=== PATIENT | male | born 1995 | race Caucasian/White ===

== ENCOUNTER 2016-12-02 22:35 | Emergency (ER) | payer BC ==
[~2016-12-02] VITALS: Ht 190.5 cm; Wt 86.9 kg
[2016-12-02 22:48] VITALS: TEMP 36.4; Ht 190.5 cm; Wt 86.9 kg
[2016-12-02] MEDS ORDERED: SODIUM CHLORIDE 0.9% 1000ML 1,000 ML IV ONE (23:15)
[2016-12-02 23:21] LABS: BASO % 0.1 %; BASO ABS # 0.01 K/uL (0-0.2); COMPLETE YES; EOS % 1.1 %; HEMATOCRIT 42.4 % (42-52); IG% 0.1 %; LYMPH % 35.4 %; LYMPH ABS # 2.57 K/uL (1.2-3.4); MEAN CELL VOLUME 98.1 fL (80-100); MEAN CORPUSCULAR HGB CONC 34.7 g/dl (32-36); MEAN PLATELET VOLUME 9.8 fL (7.4-10.4); MONO % 8.1 %; NEUT % 55.2 %; PLATELET COUNT 197 K/uL (130-400); RED BLOOD COUNT 4.32 M/uL (4.7-6.1); WHITE BLOOD COUNT 7.27 K/uL (4.8-10.8)
[2016-12-02 23:42] LABS: ALT/SGPT 13 U/L (12-78); BLOOD UREA NITROGEN 17 mg/dl (7-18); BUN/CREATININE RATIO 16.9 (10-20); CALCIUM 8.8 mg/dl (8.5-10.1); CARBON DIOXIDE 30 mmol/L (21-32); CHLORIDE 104 mmol/L (98-107); GLUCOSE 79 mg/dl (70-99); MAGNESIUM 2.2 mg/dl (1.8-2.4); POTASSIUM 3.6 mmol/L (3.5-5.1); SODIUM 141 mmol/L (136-145)
[2016-12-02 23:53] LABS: ALB/GLOB RATIO 1.1 (0.9-2); ALKALINE PHOSPHATASE 74 U/L (45-117); AST/SGOT 9 U/L (15-37); CKMB/CK RATIO 0.8 (0-3.0)
[2016-12-03] LABS: URINE APPEARANCE CLEAR (CLEAR); URINE BILIRUBIN NEG (NEG); URINE COLOR YELLOW; URINE NITRITE NEG (NEG); URINE PH 6.5 (4.5-7.5); URINE SPECIFIC GRAVITY 1.026 (1.000-1.030); UROBILINOGEN NEG (NEG); ZZUR CULT IF INDIC CLEAN CATCH NO
[2016-12-03 00:01] LABS: MANUAL MICROSCOPIC REQUIRED? NO; REVIEW REQ? NO
[2016-12-03 00:23] VITALS: BP 127/72; PULSE 58; O2SAT 98
--- NOTE | 2016-12-03 00:39 | EMERGENCY ROOM VISIT NOTE ---
History First contact with patient: 23:08 Chief Complaint: CARDIAC ASSESSMENT Stated Complaint: CHEST TIGHTNESS, SIDE AND SHOULDER PAIN Nursing Triage Summary: Patient c/o heart palpitations that began today, but are becoming more frequent. Also c/o pain radiating down left side with associated nausea. Denies cardiac hx. History of Present Illness The patient is a 21 year old male who presents to the Emergency Room with complaints of chest tightness, shortness of breath, and intermittent palpitations for the past one day. Occasionally the tightness in his chest will be more on the left side than the right. He considers himself usually healthy and has not had flulike symptoms recently. He is not having dyspnea on exertion or abdominal pain. No numbness or paresthesias. Patient states that he has not been sleeping well the past few weeks, and he is working most days of the week. 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 He does not have a history of DVT or PE. He has not taken anything over-the- counter for his symptoms. He rates his current discomfort a 0/10. Review of Systems More than 10 systems were reviewed and otherwise negative with the exception of history of present illness. Past Medical/Surgical History Medical Problems: (1) Acute appendicitis (2) Acute appendicitis (3) Epilepsy (4) Right corneal abrasion Surgical Problems: (1) Hx of appendectomy Family History Cancer Diabetes mellitus Heart disease Hypertension Lung disease Social History Smoking Status: Never Smoker Alcohol Use: occasionally Drug Use: none Marital Status: single Housing Status: lives with family Occupation Status: employed Current/Historical Medications No Active Prescriptions or Reported Meds Allergies Coded Allergies: No Known Allergies (Unverified , NONE, 12/30/15) Physical Exam Vital Signs Date Time Temp Pulse Resp B/P Pulse Ox O2 Delivery O2 Flow Rate FiO2 12/03/16 00:23 58 18 127/72 98 12/02/16 23:19 Room Air 12/02/16 23:11 71 12/02/16 22:48 36.4 75 18 148/94 98 Room Air 12/02/16 22:48 98 Room Air Pain Rating (0-10): 0 Physical Exam VITALS: Vitals are noted on the nurse's note and reviewed by myself. Vital signs stable. GENERAL: Well-developed, well-nourished, white male, who is in no acute distress and resting comfortably. Patient is cooperative with the examination. HEAD: Normocephalic atraumatic. EARS: External ear normal. External auditory canals clear, tympanic membranes pearly agrcia without erythema or effusion bilaterally. EYES: Pupils equal round and reactive to light and accommodation. Conjunctivae without injection, sclerae without icterus. Extraocular movements intact. NOSE: Patent, turbinates without inflammation or discharge. MOUTH: Mucous membranes moist. Tonsils are not enlarged. Pharynx without erythema, blood, or exudate. Uvula midline. Airway patent. NECK: Supple without nuchal rigidity. No lymphadenopathy. No thyromegaly. Cervical spine is nontender. HEART: Regular rate and rhythm without murmurs gallops or rubs. LUNGS: Clear to auscultation bilaterally without wheezes, rales or rhonchi. No retractions or accessory muscle use. ABDOMEN: Positive normal bowel sounds x 4. Soft, nontender, without masses or organomegaly. No guarding or rebound tenderness. MUSCULOSKELETAL: No muscle atrophy, erythema, or edema noted. Full range of motion without joint tenderness in all extremities. No tenderness to palpation. Normal gait. Strength 5/5 throughout. NEURO: Patient was alert and oriented to person place and time. CN II through XII grossly intact. Deep tendon reflexes 2+ throughout. No focal neurological deficits SKIN: The skin was without rashes, erythema, edema, or bruising. Capillary reflex less than 2 seconds. Medical Decision & Procedures Laboratory Results 12/02/16 23:00 Red Blood Count 4.32, Mean Corpuscular Volume 98.1, Mean Corpuscular Hemoglobin 34.0, Mean Corpuscular Hemoglobin Concent 34.7, Mean Platelet Volume 9.8, Neutrophils (%) (Auto) 55.2, Lymphocytes (%) (Auto) 35.4, Monocytes (%) (Auto) 8.1, Eosinophils (%) (Auto) 1.1, Basophils (%) (Auto) 0.1, Neutrophils # (Auto) 4.01, Lymphocytes # (Auto) 2.57, Monocytes # (Auto) 0.59, Eosinophils # (Auto) 0.08, Basophils # (Auto) 0.01 12/02/16 23:00 Test 12/02/16 23:00 12/02/16 23:45 White Blood Count 7.27 K/uL (4.8-10.8) Red Blood Count 4.32 M/uL (4.7-6.1) Hemoglobin 14.7 g/dL (14.0-18.0) Hematocrit 42.4 % (42-52) Mean Corpuscular Volume 98.1 fL (80-100) Mean Corpuscular Hemoglobin 34.0 pg (25-34) Mean Corpuscular Hemoglobin Concent 34.7 g/dl (32-36) Platelet Count 197 K/uL (130-400) Mean Platelet Volume 9.8 fL (7.4-10.4) Neutrophils (%) (Auto) 55.2 % Lymphocytes (%) (Auto) 35.4 % Monocytes (%) (Auto) 8.1 % Eosinophils (%) (Auto) 1.1 % Basophils (%) (Auto) 0.1 % Neutrophils # (Auto) 4.01 K/uL (1.4-6.5) Lymphocytes # (Auto) 2.57 K/uL (1.2-3.4) Monocytes # (Auto) 0.59 K/uL (0.11-0.59) Eosinophils # (Auto) 0.08 K/uL (0-0.5) Basophils # (Auto) 0.01 K/uL (0-0.2) RDW Standard Deviation 48.4 fL (36.4-46.3) RDW Coefficient of Variation 13.5 % (11.5-14.5) Immature Granulocyte % (Auto) 0.1 % Immature Granulocyte # (Auto) 0.01 K/uL (0.00-0.02) D-Dimer < 190 ug/L FEU (0-500) Anion Gap 7.0 mmol/L (3-11) Est Creatinine Clear Calc Drug Dose 137.3 ml/min Estimated GFR () 122.4 Estimated GFR (Non- 105.6 BUN/Creatinine Ratio 16.9 (10-20) Calcium Level 8.8 mg/dl (8.5-10.1) Magnesium Level 2.2 mg/dl (1.8-2.4) Total Bilirubin 0.4 mg/dl (0.2-1) Aspartate Amino Transf (AST/SGOT) 9 U/L (15-37) Alanine Aminotransferase (ALT/SGPT) 13 U/L (12-78) Alkaline Phosphatase 74 U/L (45-117) Total Creatine Kinase 80 U/L (39-308) Creatine Kinase MB 0.6 ng/ml (0.5-3.6) Creatine Kinase MB Ratio 0.8 (0-3.0) Troponin I < 0.015 ng/ml (0-0.045) Total Protein 7.3 gm/dl (6.4-8.2) Albumin 3.9 gm/dl (3.4-5.0) Globulin 3.4 gm/dl (2.5-4.0) Albumin/Globulin Ratio 1.1 (0.9-2) Lipase 201 U/L (73-393) Thyroid Stimulating Hormone (TSH) 2.400 uIu/ml (0.300-4.500) Urine Color YELLOW Urine Appearance CLEAR (CLEAR) Urine pH 6.5 (4.5-7.5) Urine Specific Superior 1.026 (1.000-1.030) Urine Protein NEG (NEG) Urine Glucose (UA) NEG (NEG) Urine Ketones NEG (NEG) Urine Occult Blood NEG (NEG) Urine Nitrite NEG (NEG) Urine Bilirubin NEG (NEG) Urine Urobilinogen NEG (NEG) Urine Leukocyte Esterase NEG (NEG) Medications Administered Medications (Trade) Dose Ordered Sig/Alanis Route Start Time Stop Time Status Last Admin Dose Admin Sodium Chloride (Nss 1000ml) 1,000 ml @ 999 mls/hr Q1H1M ONCE IV 12/02/16 23:15 12/03/16 00:15 DC 12/02/16 23:47 999 MLS/HR ED Course Physical exam and history were performed. Nursing notes and EMR were reviewed. Patient appears to have chest tightness and palpitations for the past one day. On examination the patient does not appear toxic. EKG was performed and was normal sinus rhythm at 60 beats for minute without ST elevation or ischemia. IV access was established and labs were obtained. The patient was hydrated with normal saline. He is placed on awake overnight monitor. Chest x-ray was performed. The patient's blood work is as above and was reviewed. He does not have a significantly elevated white blood cell count, gross anemia, bandemia, or significant electrolyte imbalance. Lipase and transaminases are nondiagnostic. Troponin and d-dimer 1 are both negative. TSH is normal. Urine is without signs of infection. Chest x-ray does not show acute process. The patient remained in normal sinus rhythm on the awake overnight monitor. Overall the patient does appear stable for discharge home. Clinically I do not suspect an acute cardiopulmonary event as the etiology of the patient's discomfort. He and I had a lengthy discussion regarding possible expirations for his discomfort, the patient states that he has been under increased stressors through work. This, combined with increased caffeine intake, may be the likely cause of his symptoms. Recommend the patient follow with his primary care physician this week for further care and management. He certainly is invited back to the ER with any new, worsening, or concerning symptoms. The patient was very pleased with this plan and rated his discomfort a 0/10 at the time of departure. The chart was completed utilizing [employer] Speech Voice Recognition Software. Grammatical errors, random word insertions, pronoun errors, and incomplete sentences are an occasional consequence of this system due to software limitations, ambient noise, and hardware issues. Any formal questions or concerns about the content, text, or information contained within the body of this dictation should be directly addressed to the provider for clarification. . Medical Decision Differential diagnosis includes, but is not limited to: Myocardial infarction, dysrhythmia, pericarditis, pneumothorax, aortic aneurysm/dissection, DVT/PE, anxiety, GERD, PUD, electrolyte imbalance, thyroid disorder, pneumonia, bronchitis, pancreatitis, and others Impression Primary Impression: Non-cardiac chest pain Departure Information Dispostion Home / Self-Care Condition GOOD Prescriptions No Active Prescriptions or Reported Meds Forms IMPORTANT VISIT INFORMATION Patient Instructions My [facility] Additional Instructions You were seen and evaluated today on an emergency basis only. This is not a substitute for, or an effort to provide, complete comprehensive medical care. It is not possible to recognize and treat all injuries or illnesses in a single emergency department visit. For this reason it is recommended that you followup with your primary care physician office this week for ongoing care and evaluation. Drink plenty of fluids and remain well hydrated. For baseline pain relief you may alternate ibuprofen and acetaminophen every 4 hours for pain control. Take 600 mg ibuprofen (Advil) and then 4 hours later take 1000 mg acetaminophen (Tylenol). Do not take more than 3000 mg acetaminophen in a single day. Try to avoid alcohol, nicotine, and caffeine as these can worsen your symptoms. You are welcome to return to the emergency department anytime with new, worsening, or concerning symptoms.
[2016-12-03 00:45] LABS: BENZODIAZEPINE, URINE NEG (NEG); COCAINE,URINE NEG (NEG); PHENCYCLIDINE, URINE NEG (NEG)
--- NOTE | 2016-12-03 07:41 | DIAGNOSTIC IMAGING REPORT ---
SINGLE VIEW CHEST CLINICAL HISTORY: Atypical chest pain. FINDINGS: An AP, portable, upright chest radiograph is compared to study dated 07/22/2014. The examination is degraded by portable technique and patient rotation. The cardiomediastinal silhouette is unremarkable. The lungs and pleural spaces are clear. No pneumothorax is seen. The bony thorax is grossly intact. IMPRESSION: No active disease in the chest. Electronically signed by: Brandon Medellin M.D. 12/03/2016 7:40 AM Dictated Date/Time: 12/03/2016 7:40 AM
== END 2016-12-03 00:24 | disposition home or self-care (01) ==
LOC: C.EDB 22:38
DX: R07.89 Other chest pain (principal); Z90.49 Acquired absence of other specified parts of digestive tract; Z83.3 Family history of diabetes mellitus; Z82.49 Family history of ischemic heart disease and other diseases of the circulatory system; Z84.1 Family history of disorders of kidney and ureter